=== PATIENT | male | born 1970 | race Caucasian/White ===

== ENCOUNTER 2024-10-12 17:20 | Inpatient (IN) ==
--- NOTE | 2024-10-12 17:28 | ED Triage Note ---
Date of Service October 12, 2024 Provider in Triage Author: Jonas Reyes History of Present Illness This patient was briefly evaluated while in triage. An abbreviated physical exam was performed. This patient is a 54-year-old Male who presents to the ED for evaluation here 2 days ago with left flank pain, diagnosed with a kidney stone on antibiotics but nothing given for pain continued left flank pain denies fevers Physical Exam GENERAL: NAD CARDIOVASCULAR: RRR RESPIRATORY: CTA ABDOMEN: BS x 4. Left flank TTP. Initial orders for labs and / or imaging were placed and patient was placed in t he waiting area until a bed is available. Please see further documentation for the full ED course.
[2024-10-12] MEDS: KETOROLAC 30 MG/ML VIAL IV STA (17:37)
[2024-10-12 18:02] LABS: Basophils # (auto) 0.01 K/uL (0.00-0.20); Basophils % (auto) 0.1 %; Eosinophils # (auto) 0.03 K/uL (0.00-0.50); Eosinophils % (auto) 0.3 %; Hematocrit (blood only) 45.1 % (42.0-52.0); Hemoglobin 15.2 g/dl (14.0-18.0); Immature Granulocytes # (auto) 0.03 K/uL (0.01-0.20); Immature Granulocytes % (auto) 0.3 %; Lymphocytes % (auto) 20.9 %; Mean Corpuscular Hemoglobin 29.5 pg (25.0-34.0); Mean Corpuscular Hgb Conc 33.7 g/dL (32.0-36.0); Mean Corpuscular Volume 87.6 fL (80.0-100.0); Mean Platelet Volume 8.8 fL (9.4-12.4); Neutrophils # (auto) 6.88 K/uL (1.40-6.50); Neutrophils % (auto) 68.4 %; Platelet Count 229 K/uL (130-400); RDW Coefficient of Variation 13.1 % (11.5-14.5); RDW Standard Deviation 41.7 fL (36.4-46.3); Red Blood Count 5.15 M/uL (4.70-6.10); White Blood Count 10.05 K/ul (4.8-10.8)
[2024-10-12 18:03] LABS: Albumin Globulin Ratio 1.6 (0.9-2); Albumin Level 4.7 gm/dl (3.4-5.0); BUN Creatinine Ratio 14.8 (10-20); Bilirubin,Total 0.7 mg/dl (0.2-1.0); Calcium 9.6 mg/dl (8.6-10.3); Creatinine Clr Calc Pharmacy 57.3 ml/min; Globulin 2.9 gm/dl (2.5-4.0); Potassium 4.3 mmol/L (3.5-5.1); Total Protein 7.6 gm/dl (6.0-8.3)
[2024-10-12] MEDS: SODIUM CHLORIDE 0.9% 1,000 ML IV SCH ×2 (18:20→23:19)
--- NOTE | 2024-10-12 18:22 | XRay Report ---
EXAM: Radiograph of the Abdomen 1 View INDICATION: Left ureteral stone TECHNIQUE: Frontal supine view of the abdomen/pelvis. COMPARISON: CT 10/11/2024 FINDINGS: Limitations: None. Gastrointestinal tract: Air scattered throughout non-dilated intestinal loops. Organs: There appears to be a 2 to 3 mm stone at the left UVJ likely unchanged. No stone seen over either renal shadow allowing for overlying stool and gas. Bones/joints: No fracture, erosion or dislocation. Soft tissues: There is edema in the left lateral pelvis. IMPRESSION: There appears to be a 2 to 3 mm stone at the left UVJ likely unchanged. ACT 112: Negative or not required by law. Electronically signed by Jacqueline Ortiz 10-12-2024 6:18 PM
[2024-10-12 18:29] LABS: Appearance Urine Clear (Clear); Bilirubin Urine Negative (Negative); Blood Urine Negative (Negative); Color Urine Yellow; Glucose Urine UA Negative (Negative); Ketones Urine Trace (Negative); Leukocyte Esterase Urine Negative (Negative); Nitrite Urine Negative (Negative); Protein Urine Negative (Negative); Specific Gravity Urine 1.033 (1.000-1.030); Urobilinogen Urine Negative (Negative); pH Urine 5.5 (4.5-7.5)
--- NOTE | 2024-10-12 18:45 | CT Scan Report ---
EXAM: CT Abdomen and Pelvis Without Intravenous Contrast INDICATION: Left flank pain. Left ureteral stone. TECHNIQUE: Axial computed tomography images of the abdomen and pelvis without intravenous contrast. Sagittal and coronal reformatted images were created and reviewed. This CT exam was performed using one or more of the following dose reduction techniques: automated exposure control, adjustment of the mA and/or kV according to patient size, and/or use of iterative reconstruction technique. COMPARISON: 10/11/2024 FINDINGS: Limitations: None. Lung bases: No abnormality noted. Pleural space: No visualized pleural effusion or pneumothorax. Heart: No abnormality noted. Mediastinum: No abnormality noted. ABDOMEN: Liver: Lack of intravenous contrast limits detection of some masses. No abnormality noted. Gallbladder and bile ducts: No calcified stones or surrounding fluid. Pancreas: No pancreatic mass, calcification, inflammation or ductal dilation noted. Spleen: No significant abnormality noted. Adrenals: No significant abnormality noted. Kidneys and ureters: There is improved left perinephric edema and fluid. Stable to trace left hydronephrosis. There is stable moderate edema and low-density fluid tracking along the left ureter into the pelvis toward the left inguinal region. No associated hyperdensity identified to suggest urinoma/leak. There is hyperdensity throughout much of the left ureter which likely reflects a standing column of contrast from yesterday's injection. The stone at the left UVJ remains. moderate left parapelvic and periureteral edema. Stable low-density fluid in the left retroperitoneum. Right kidney appears normal. Stomach and bowel: Colonic diverticulosis without diverticulitis. No intestinal thickening or obstruction. PELVIS: Appendix: Well seen and appears normal. Bladder: Incompletely distended and not optimally assessed. No gas or stone. Reproductive: No abnormalities noted. ABDOMEN and PELVIS: Intraperitoneal space: No free air. No significant fluid collection. Bones/joints: No acute changes. Soft tissues: There are small bilateral fat containing inguinal hernias. Vasculature: No abdominal aortic aneurysm. Lymph nodes: No pathologically enlarged lymph nodes. IMPRESSION: 1. Stable left UVJ stone and trace hydronephrosis. 2. Moderate amounts of edema and fluid along the left ureter tracking through the left retroperitoneum does not enhance consistent with either urine from a rupture that is since sealed. No extravasated contrast to suggest urinoma. ACT 112: Negative or not required by law. Electronically signed by Jacqueline Ortiz 10-12-2024 6:45 PM
--- NOTE | 2024-10-12 21:43 | History & Physical Report ---
Date of Service October 12, 2024 Assessment & Plan (1) MARLEY (acute kidney injury): (2) Paraureteric urinoma: (3) Renal colic on left side: Plan Everett Hurtado is a 54 year-old male with medical history significant for GERD, HTN, HLD who presented to the ED for left sided back pain. Was seen the day prior in ED for known left sided renal stone, was discharged at the time with plan for outpatient urology follow up. Left UVJ Stone | Possible Paraureteric Urinoma -Worsening of pain since ED evaluation day prior and discharged on Cefdinir -No leukocytosis, afebrile. UA +ketones. Will repeat CBC in a.m. -Repeat CT A/P obtained: "stable left UVJ stone and trace hydronephrosis. Moderate amounts of edema and fluid along the left ureter tracking through he left retroperitoneum does not enhance consistent with either urine from a rupture that is since sealed. No extravasated contrast to suggest urinoma." This differs from the CT A/P the day prior which did report a urinoma -CT from 10/11 reported "moderate fat stranding with adjacent fluid collection is noted along the entire course of left ureter-suggest changes of obstructive uropathy with urinoma formation. -Will initiate Ceftriaxone q24h, continue IVF -Urology consulted, appreciate recommendations -Analgesia with Tylenol, Morphine PRN HTN- continue lisinopril Anxiety/depression- continue sertraline Admit to: med/surg VTE Prophylaxis: defer while awaiting urology evaluation Diet: NPO Code Status: Full Code History of Present Illness Primary Care Provider: EKTA Somers Everett Hurtado is a 54 year-old male with medical history significant for GERD, HTN, HLD who presented to the ED for left sided back pain. Patient was previously evaluated in the ED at [facility] on 10/11 for same symptoms, was diagnosed with renal colic on left side and CT imaging showed paraureteric urinoma- patient was discharged on Cefdinir and recommended to follow up with urology as an outpatient. Patient returned to ED today after no improvement in symptoms after starting the antibiotic. Patient endorses left sided back/flank pain and has been unable to get comfortable, endorses feeling sweaty due to the pain. States he had a kidney stone 20+ years ago but he passed it on his own and had no other issues. Currently patient denies chest pain/SOB/fever/body aches. Denies any hematuria or dysuria. States he has not had much to eat or drink today due to the pain he is in. Notes some improvement with IV Toradol given in ED. ED Course: -KUB -CT A/P -CBC, CMP, UA Allergies Allergy/AdvReac Type Severity Reaction Status Date / Time citalopram AdvReac Mild headache Verified 10/12/24 20:53 hallucination levofloxacin AdvReac Mild tendinitis Verified 10/12/24 20:53 Home Medications Medication Instructions Recorded Confirmed Type latanoprost 0.005 % eye drops 1 drp ophthalmic (eye) .COMPLEX 11/11/23 10/12/24 History sertraline 25 mg tablet 25 mg PO HS #90 tabs 02/03/24 10/12/24 Rx cefdinir 300 mg capsule 300 mg PO BID 5 days #10 caps 10/11/24 10/12/24 Rx lisinopril 20 mg tablet 20 mg PO DAILY 10/12/24 10/12/24 History Past Med/Surg History Problem List (Updated 10/13/24 @ 19:05 by Jimena Peters MD) Paraureteric urinoma (Acute) Left ureteral stone (Acute) MARLEY (acute kidney injury) (Acute) Paraureteric urinoma (Acute) Renal colic on left side (Acute) White coat syndrome with diagnosis of hypertension Encounter for screening for malignant neoplasm of rectum Encounter for screening for malignant neoplasm of colon Lightheadedness Nausea Anxiety and depression Screening PSA (prostate specific antigen) Vitamin D deficiency GERD (gastroesophageal reflux disease) Acute epididymitis Myalgia due to statin Neck strain Well adult Hypertension (Chronic) Hyperlipidemia (Chronic) Medical History Prostatitis (03/12/13) Lyme disease Surgical History History of tonsillectomy (03/12/13) Family History Mother Hypertension Denies family history of Ovarian cancer Prostate cancer Diabetes Myocardial infarction Breast cancer Colorectal cancer Social History Smoking Status: Never smoker Second Hand Exposure: No; Do You Dip or Chew Tobacco: No; Hx Alcohol Use: No Hx Substance Use: No Preferred Language: Kuwaiti Communication Ability: Effective Packer Required: No Beliefs That Will Affect Care: None marital status: Current Living Situation: Spouse Current Living Situation Comment: lives with girlfriend current occupational status: employed current occupation: self-employed How many Children do You have: 0 Feels Safe at Home: Yes Childhood Exposure to Second-Hand Smoke: Yes Diet: regular caffeine: Yes Dental Care, Regularly: Yes Physical Activity Frequency: 1-2 Times per Week Seatbelt Use: never Sunscreen Use: No Review of Systems Review of Systems: As per above Physical Exam Constitutional: WD/WN, vitals as above Eyes: + anicteric sclerae; no conjunctival abn ormality ENMT: Ears: no external ear abnormality Nose: no external nose abnormality moist mucous membranes Respiratory: normal respiratory effort, lungs clear to auscultation Cardiovascular: RRR, no murmur, no edema Gastrointestinal (Abdomen): Inspection/Auscultation: abdomen normal to inspection; abdomen not distended Percussion/Palpation: abdomen soft; abdomen nontender and no guarding Musculoskeletal: Moves all limbs independently. Skin: no rashes, warm and dry Psychiatric: A+Ox3, euthymic affect Results & Data Results & Data Vital Signs (Past 12 Hours) Vital Signs Temp Pulse Pulse Resp BP BP Pulse Ox 10/12/24 19:17 76 18 174/89 H 96 10/12/24 19:16 77 10/12/24 17:26 37.4 C 75 20 164/101 H 96 O2 Del Method 10/12/24 19:17 Room Air 10/12/24 19:16 10/12/24 17:26 Room Air Diagnostic Findings KUB X-Ray 10/12/24 17:28 EXAM: Radiograph of the Abdomen 1 View INDICATION: Left ureteral stone TECHNIQUE: Frontal supine view of the abdomen/pelvis. COMPARISON: CT 10/11/2024 FINDINGS: Limitations: None. Gastrointestinal tract: Air scattered throughout non-dilated intestinal loops. Organs: There appears to be a 2 to 3 mm stone at the left UVJ likely unchanged. No stone seen over either renal shadow allowing for overlying stool and gas. Bones/joints: No fracture, erosion or dislocation. Soft tissues: There is edema in the left lateral pelvis. IMPRESSION: There appears to be a 2 to 3 mm stone at the left UVJ likely unchanged. ACT 112: Negative or not required by law. Electronically signed by Jacqueline Ortiz 10-12-2024 6:18 PM Abdomen/Pelvis CT 10/12/24 18:18 EXAM: CT Abdomen and Pelvis Without Intravenous Contrast INDICATION: Left flank pain. Left ureteral stone. TECHNIQUE: Axial computed tomography images of the abdomen and pelvis without intravenous contrast. Sagittal and coronal reformatted images were created and reviewed. This CT exam was performed using one or more of the following dose reduction techniques: automated exposure control, adjustment of the mA and/or kV according to patient size, and/or use of iterative reconstruction technique. COMPARISON: 10/11/2024 FINDINGS: Limitations: None. Lung bases: No abnormality noted. Pleural space: No visualized pleural effusion or pneumothorax. Heart: No abnormality noted. Mediastinum: No abnormality noted. ABDOMEN: Liver: Lack of intravenous contrast limits detection of some masses. No abnormality noted. Gallbladder and bile ducts: No calcified stones or surrounding fluid. Pancreas: No pancreatic mass, calcification, inflammation or ductal dilation noted. Spleen: No significant abnormality noted. Adrenals: No significant abnormality noted. Kidneys and ureters: There is improved left perinephric edema and fluid. Stable to trace left hydronephrosis. There is stable moderate edema and low-density fluid tracking along the left ureter into the pelvis toward the left inguinal region. No associated hyperdensity identified to suggest urinoma/leak. There is hyperdensity throughout much of the left ureter which likely reflects a standing column of contrast from yesterday's injection. The stone at the left UVJ remains. moderate left parapelvic and periureteral edema. Stable low-density fluid in the left retroperitoneum. Right kidney appears normal. Stomach and bowel: Colonic diverticulosis without diverticulitis. No intestinal thickening or obstruction. PELVIS: Appendix: Well seen and appears normal. Bladder: Incompletely distended and not optimally assessed. No gas or stone. Reproductive: No abnormalities noted. ABDOMEN and PELVIS: Intraperitoneal space: No free air. No significant fluid collection. Bones/joints: No acute changes. Soft tissues: There are small bilateral fat containing inguinal hernias. Vasculature: No abdominal aortic aneurysm. Lymph nodes: No pathologically enlarged lymph nodes. IMPRESSION: 1. Stable left UVJ stone and trace hydronephrosis. 2. Moderate amounts of edema and fluid along the left ureter tracking through the left retroperitoneum does not enhance consistent with either urine from a rupture that is since sealed. No extravasated contrast to suggest urinoma. ACT 112: Negative or not required by law. Electronically signed by Jacqueline Ortiz 10-12-2024 6:45 PM Supervising Physician Co-Signing Physician Notes Attending addendum: I have physically seen this patient, have supervised the medical residents activities, and agree with the H&P unless as otherwise noted. Assessment and Plan: The patient is a 54-year-old male with past medical history including GERD, hypertension, hyperlipidemia, who presented to the emergency department due to left-sided back pain, with known left-sided renal stone. #Left UVJ stone stable- With left ureteral tracking, thought not to be ruptured and question of urinoma noted on previous day CT scan but not on current scan Trace hydronephrosis noted today CT from 10/11 reports moderate fat stranding with adjacent fluid collection noted along the entire course of left ureter suggesting changes of obstructive uropathy with urinoma formation Follow urine culture and sensitivity Empiric ceftriaxone 2 g IV daily Acetaminophen 1 g IV every 8 hours as needed for mild pain or fever Morphine sulfate 2 mg IV every 3 hours as needed for moderate pain Morphine sulfate 4 mg IV every 3 hours as needed for severe pain Consult urology #Acute kidney injury- Creatinine 1.83, with baseline 0.98 Hold lisinopril Treat stone and infection as above IV fluids as noted Repeat laboratories in a.m. #Anxiety/depression- Continue sertraline Resident Activity Tracking Resident Involvement: Resident Care Provided Care Provided: Adult [facility]
[2024-10-12] MEDS: cefTRIAXone SODIUM 2,000 MG/50 ML BAG IV STA (23:01)
[2024-10-12] MEDS ORDERED: MELATONIN 3 MG TAB PO PRN (23:50)
[2024-10-12] MEDS ORDERED: ONDANSETRON INJ 2 MG/ML 2 ML VIAL IV PRN (23:50)
[2024-10-12] MEDS ORDERED: POLYETHYLENE (MIRALAX) 17 GM PACK PO PRN (23:50)
[2024-10-12] MEDS ORDERED: MoRPHine SULFATE 2 MG/ML CARP IV PRN (23:50)
[2024-10-13] MEDS ORDERED: MoRPHine SULFATE 2 MG/ML CARP IV PRN (00:29)
[2024-10-13] MEDS: LATANOPROST 0.005% OP SOLN 2.5 ML BTL OP SCH (00:59)
[2024-10-13 04:00] LABS: Basophils # (auto) 0.01 K/uL (0.00-0.20); Basophils % (auto) 0.1 %; Eosinophils # (auto) 0.02 K/uL (0.00-0.50); Eosinophils % (auto) 0.2 %; Hematocrit (blood only) 39.2 % (42.0-52.0); Hemoglobin 13.2 g/dl (14.0-18.0); Immature Granulocytes # (auto) 0.01 K/uL (0.01-0.20); Immature Granulocytes % (auto) 0.1 %; Lymphocytes # (auto) 2.02 K/uL (1.20-3.40); Lymphocytes % (auto) 24.5 %; Mean Corpuscular Hemoglobin 29.5 pg (25.0-34.0); Mean Corpuscular Hgb Conc 33.7 g/dL (32.0-36.0); Mean Corpuscular Volume 87.5 fL (80.0-100.0); Mean Platelet Volume 8.8 fL (9.4-12.4); Monocytes # (auto) 0.88 K/uL (0.11-0.59); Monocytes % (auto) 10.7 %; Neutrophils # (auto) 5.29 K/uL (1.40-6.50); Neutrophils % (auto) 64.4 %; Platelet Count 198 K/uL (130-400); RDW Coefficient of Variation 12.8 % (11.5-14.5); RDW Standard Deviation 41.2 fL (36.4-46.3); Red Blood Count 4.48 M/uL (4.70-6.10); White Blood Count 8.23 K/ul (4.8-10.8)
[2024-10-13 04:21] LABS: Albumin Globulin Ratio 1.6 (0.9-2); Albumin Level 3.9 gm/dl (3.4-5.0); BUN Creatinine Ratio 14.8 (10-20); Bilirubin,Total 0.6 mg/dl (0.2-1.0); Calcium 8.5 mg/dl (8.6-10.3); Creatinine Clr Calc Pharmacy 62.1 ml/min; Globulin 2.5 gm/dl (2.5-4.0); Potassium 4.1 mmol/L (3.5-5.1); Total Protein 6.4 gm/dl (6.0-8.3)
[2024-10-13] MEDS: ACETAMINOPHEN 500 MG TAB PO PRN (06:32)
--- NOTE | 2024-10-13 08:56 | Anesthesiology Consultation ---
Date of Service October 13, 2024 Assessment & Plan Chart Review Chart Review: Acceptable Risk for Surgery and Patient NOT seen in Pre Admission Testing Consults Requested none ASA [id number] Proposed Anesthesia Anesthesia Type: General History Surgery Operation Date: 10/13/24 09:00 Proposed Procedures p Ureteral Stent Insertion/Removal - Faustino Islas MD Height/Weight Height: 5 ft 11 in Weight: 101.6 kg Allergies Allergy/AdvReac Type Severity Reaction Status Date / Time citalopram AdvReac Mild headache Verified 10/12/24 20:53 hallucination levofloxacin AdvReac Mild tendinitis Verified 10/12/24 20:53 Medications Home Medications Medication Instructions Recorded Confirmed Last Taken latanoprost 0.005 % eye drops 1 drp ophthalmic (eye) .COMPLEX 11/11/23 10/12/24 Unknown sertraline 25 mg tablet 25 mg PO HS #90 tabs 02/03/24 10/12/24 Unknown cefdinir 300 mg capsule 300 mg PO BID 5 days #10 caps 10/11/24 10/12/24 Unknown lisinopril 20 mg tablet 20 mg PO DAILY 10/12/24 10/12/24 Unknown Active Medications Generic Name Dose Route Start Last Admin Trade Name Freq PRN Reason Stop Dose Admin Acetaminophen 1,000 mg 10/12/24 23:50 10/13/24 06:32 Acetaminophen 500 Mg Tab PO 11/11/24 23:49 1,000 mg Q8H PRN Administration Pain first line Sodium Chloride 1,000 mls @ 125 mls/hr 10/12/24 22:45 10/13/24 07:22 Nss IV 10/13/24 14:44 125 mls/hr .Q8H JOSE Administration Latanoprost 1 drops 10/12/24 23:50 10/13/24 00:59 Latanoprost 0.005% Op Soln 2.5 Ml Btl OP 11/11/24 23:49 Not Given HS JOSE Past Medical History Medical History Prostatitis (03/12/13) Lyme disease HTN HLD MARLEY Hydronephrosis obese Exercise / Class Metabolic Activity II 4-5 Yardwork/Stairs/Walk up hill Past Family History Family History Mother Hypertension Denies family history of Ovarian cancer Prostate cancer Diabetes Myocardial infarction Breast cancer Colorectal cancer Past Surgical History Surgical History History of tonsillectomy (03/12/13) Past Anesthesia History No Hx of Anesthesia Complications and No Family Hx of Anesthesia Complications History of PONV No Hx of PONV and No Hx of Motion Sickness Social History Smoking Status: Never smoker Do You Dip or Chew Tobacco: No Hx Alcohol Use: No Hx Substance Use: No Physical Exam Vital Signs Last Vital Signs Temp 37.4 C 10/12/24 17:26 Pulse 83 10/13/24 07:20 Resp 20 10/13/24 07:20 BP 150/69 H 10/13/24 07:20 Pulse Ox 95 10/13/24 07:20 O2 Del Method Room Air 10/13/24 07:20 Testing Laboratory Results 10/13/24 03:52 10/13/24 03:52 Urine Color Yellow 10/12/24 Unknown Urine Appearance Clear (Clear) 10/12/24 Unknown Urine pH 5.5 (4.5-7.5) 10/12/24 Unknown Ur Specific Anselmo 1.033 (1.000-1.030) H 10/12/24 Unknown Urine Protein Negative (Negative) 10/12/24 Unknown Urine Glucose (UA) Negative (Negative) 10/12/24 Unknown Urine Ketones Trace (Negative) H 10/12/24 Unknown Urine Nitrite Negative (Negative) 10/12/24 Unknown Ur Leukocyte Esterase Negative (Negative) 10/12/24 Unknown Electrocardiogram Date: 01/02/22 Findings: + NSR @ (SR @ 69 w/pac's and PVC's) Echocardiogram Date: 01/07/22 EF: 60% LV Function: normal RWMA: + none Other Findings: + LVH (mild) and + diastolic dysfunction (Grade 1) Valvular Disease: + MR (mild) Stress Test Date: 01/07/22 Type: exercise Findings: + WNL Resting EF: 60% Resting LV Function: normal Resting RWMA: + none Valvular Disease: no significant valvular disease and MR (mild)
[2024-10-13] MEDS: lisinopril 20 MG TAB PO SCH (08:59)
--- NOTE | 2024-10-13 09:06 | Urology Consultation ---
Date of Consultation October 13, 2024 Assessment & Plan (1) MARLEY (acute kidney injury): (2) Paraureteric urinoma: (3) Renal colic on left side: (4) Left ureteral stone: Plan We reviewed the stone at the distal left ureter. Since he has bounced back to the emergency department while trialing medical expulsive therapy, we discussed the role for intervention. I offered cystoscopy, left retrograde pyelogram and left ureteral stent placement, possible stone removal depending on the location of the stone. We discussed risks and benefits of surgery including bleeding, infection, injury to urinary tract, need for additional procedures. He expressed understanding and would like to proceed with surgical intervention. Acute kidney injury is likely multifactorial, potentially element of dehydration, obstruction of the left kidney. If there was forniceal rupture, he may be having some elevated creatinine as his body reabsorbs any urine that was extravasated around the ureter. This fluid should continue to resolve spontaneously without need for drainage. Plan: We will proceed with cystoscopy, left retrograde pyelogram, left ureteroscopy and stone removal, left ureteral stent placement. History of Present Illness Reason for Consultation: Ureterolithiasis, renal colic, Possible urinoma? Attending Physician: Jessica Workman MD History of Present Illness This is a 54-year-old male with remote history of nephrolithiasis. He presented to the emergency department on 10/11/2024 with left-sided flank pain. CT scan at that time identified a 3 mm UVJ stone with hydronephrosis. There was some perinephric and periureteral edema, possibly some urine extravasation. Low suspicion for infection at that time and pain was able to be controlled. He was discharged home, but subsequently returned to the ED on 10/[address] scan was performed again which demonstrated no extravasation of contrast, however there was still contrast from his prior scan feeling in the left ureter, block behind the left UVJ stone. Workup in the emergency department demonstrated no leukocytosis (WBC 8.23). Creatinine was slightly elevated (1.69). Urinalysis did not demonstrate leukocyte esterase, nitrites and was overall reassuring. At the bedside he is feeling okay, but has not clearly passed the stone. he still has some flank pain. He reports a history of stones in the past that he was able to pass spontaneously. Allergies Allergy/AdvReac Type Severity Reaction Status Date / Time citalopram AdvReac Mild headache Verified 10/12/24 20:53 hallucination levofloxacin AdvReac Mild tendinitis Verified 10/12/24 20:53 Home Medications Medication Instructions Recorded Confirmed Type latanoprost 0.005 % eye drops 1 drp ophthalmic (eye) .COMPLEX 11/11/23 10/12/24 History sertraline 25 mg tablet 25 mg PO HS #90 tabs 02/03/24 10/12/24 Rx cefdinir 300 mg capsule 300 mg PO BID 5 days #10 caps 10/11/24 10/12/24 Rx lisinopril 20 mg tablet 20 mg PO DAILY 10/12/24 10/12/24 History Patient History Medical History Prostatitis (03/12/13) Lyme disease Surgical History History of tonsillectomy (03/12/13) Family History Mother Hypertension Denies family history of Ovarian cancer Prostate cancer Diabetes Myocardial infarction Breast cancer Colorectal cancer Social History Smoking Status: Never smoker Second Hand Exposure: No; Do You Dip or Chew Tobacco: No; Hx Alcohol Use: No Hx Substance Use: No Preferred Language: Uzbek Communication Ability: Effective Screwmaker Automatic Required: No Beliefs That Will Affect Care: None marital status: Current Living Situation: Spouse Current Living Situation Comment: lives with girlfriend current occupational status: employed current occupation: self-employed How many Children do You have: 0 Other Information That Helps Us Care for You: No Feels Safe at Home: Yes Childhood Exposure to Second-Hand Smoke: Yes Diet: regular caffeine: Yes Dental Care, Regularly: Yes Physical Activity Frequency: 1-2 Times per Week Seatbelt Use: never Sunscreen Use: No Review of Systems Review of Systems: 12 point review of systems negative exce pt for otherwise indicated. Physical Exam Constitutional: well developed and well nourished; no acute distress Eyes: + anicteric sclerae; pupils not irregula r Respiratory: normal respiratory effort; no respiratory distress, does not use accessory muscles and no cough Cardiovascular: well perfused Gastrointestinal (Abdomen): Inspection/Auscultation: abdomen normal to inspection; abdomen not distended Musculoskeletal: Extremities: extremities normal to inspection Skin: normal turgor; no rashes and no lesions Neurologic: moves all extremities and awake Psychiatric: Orientation: alert and oriented x 3 Results & Data Vital Signs (Past 12 Hours) Vital Signs Pulse Pulse Resp BP BP Pulse Ox O2 Del Method 10/13/24 07:20 83 20 150/69 H 95 Room Air 10/13/24 07:13 73 10/13/24 03:50 77 19 143/100 H 97 Room Air 10/13/24 03:45 77 12 143/100 H 98 Room Air 10/13/24 01:50 76 10/13/24 01:07 75 18 158/90 H 98 Room Air 10/13/24 00:16 76 18 141/83 H 96 Room Air 10/12/24 23:00 76 18 170/93 H 96 Room Air PG Care Time/CCT Total # of Minutes Spent Total Time Spent with Patient: Total time spent is greater than 50% in coordination of care (as documented) at patient's floor/unit and/or counseling patient: Coding Level of Care Code 02142 OP VST NEW MOD 45 MIN Diagnoses MARLEY (acute kidney injury) N17.9 Paraureteric urinoma N28.89 Renal colic on left side N23 Left ureteral stone N20.1
--- NOTE | 2024-10-13 10:03 | Hospitalist Progress Note ---
Date of Service October 13, 2024 Assessment & Plan (1) Left ureteral stone: (2) Hypertension: Plan Everett Hurtado is a 54 year-old male with medical history significant for GERD, HTN, HLD who presented to the ED for left sided back pain. Was seen the day prior in ED for known left sided renal stone, was discharged at the time with plan for outpatient urology follow up. #Left UVJ Stone | Possible Paraureteric Urinoma - Worsening of pain since ED evaluation day prior and discharged on Cefdinir - No leukocytosis, afebrile. UA +ketones. Will repeat CBC in a.m. - Repeat CT A/P obtained: "stable left UVJ stone and trace hydronephrosis. Moderate amounts of edema and fluid along the left ureter tracking through he left retroperitoneum does not enhance consistent with either urine from a rupture that is since sealed. No extravasated contrast to suggest urinoma." This differs from the CT A/P the day prior which did report a urinoma - CT from 10/11 reported "moderate fat stranding with adjacent fluid collection is noted along the entire course of left ureter-suggest changes of obstructive uropathy with urinoma formation. - Will initiate Ceftriaxone q24h, continue IVF - Urology on board, plan for cystoscopy, left retrograde pyelogram, left uret eroscopy and stone removal, left ureteral stent placement - Analgesia with Tylenol, Morphine PRN #MARLEY improving - Cr trending down, cont to monitor HTN- continue lisinopril (monitor Cr) Anxiety/depression- continue sertraline #VTE Prophylaxis: defer while awaiting urology evaluation, mobilization protocol for now Diet: NPO Code Status: Full Code Discharge pending Urology clearance Admission and Anticipated Discharge Date Admission Date: October 12, 2024 Subjective No acute events overnight Currently states that the pain has significantly improved Review of Systems Review of Systems: Comprehensive ROS neg. Physical Exam Physical Exam: Gen: NAD, lying in bed comfortable HEENT: NC/AT, MMM Lungs: CTAB CVS: s1s2nl, RRR Abd: nl bs, nontender, soft : no flank tenderness b/l, no mei Ext: no edema Results & Data Results & Data Vital Signs (Past 12 Hours) Vital Signs Pulse Pulse Resp BP BP Pulse Ox O2 Del Method 10/13/24 07:20 83 20 150/69 H 95 Room Air 10/13/24 07:13 73 10/13/24 03:50 77 19 143/100 H 97 Room Air 10/13/24 03:45 77 12 143/100 H 98 Room Air 10/13/24 01:50 76 10/13/24 01:07 75 18 158/90 H 98 Room Air 10/13/24 00:16 76 18 141/83 H 96 Room Air 10/12/24 23:00 76 18 170/93 H 96 Room Air PG Care Time/CCT Total # of Minutes Spent Total Time Spent with Patient: Total time spent is greater than 50% in coordination of care (as documented) at patient's floor/unit and/or counseling patient: Coding Level of Care Code 25699 SUB INP/OBS CARE 350MIN Diagnoses Left ureteral stone N20.1 Primary hypertension I10 Hypertension type: primary hypertension (2) Hypertension Hypertension type: primary hypertension Qualified Code(s): I10 - Essential (primary) hypertension
[2024-10-13] MEDS ORDERED: fentaNYL citrate PF 100 MCG/2 ML VIAL IV PRN (12:05)
[2024-10-13] MEDS ORDERED: LABETALOL HCL IV 5 MG/ML 20ML IV PRN (12:05)
[2024-10-13] MEDS ORDERED: FLUMAZENIL 0.1 MG/1 ML 10 ML VIAL IV PRN (12:05)
[2024-10-13] MEDS ORDERED: NALOXONE HCL 0.4 MG/1 ML VIAL/CARP IV PRN (12:05)
[2024-10-13] MEDS ORDERED: ATROPINE SULFATE 0.1 MG/ML 10ML SYR IV PRN (12:05)
[2024-10-13] MEDS ORDERED: ONDANSETRON INJ 2 MG/ML 2 ML VIAL IV PRN (12:05)
[2024-10-13] MEDS ORDERED: PROMETHAZINE HCL 6.25 MG in SODIUM CHLORIDE 0.9% 50 ML IV PRN (12:05)
[2024-10-13] MEDS ORDERED: ePHEDrine sulfate 50 MG/ML AMP IV PRN (12:05)
[2024-10-13] MEDS ORDERED: HYDROmorphone INJ 1 MG/ML SYRINGE IV PRN (12:05)
[2024-10-13] MEDS ORDERED: ONDANSETRON INJ 2 MG/ML 2 ML VIAL ONE (12:09)
[2024-10-13] MEDS ORDERED: PROPOFOL IV EMULSION 10 MG/ML 20 ML VIAL IV ONE (12:09)
[2024-10-13] MEDS ORDERED: DEXAMETHASONE SOD INJ 4 MG/ML VIAL ONE (12:09)
[2024-10-13] MEDS ORDERED: fentaNYL citrate PF 100 MCG/2 ML VIAL ONE ×2 (12:10→12:21)
[2024-10-13] MEDS ORDERED: MIDAZOLAM HCL 1 MG/ML 2ML VIAL ONE (12:10)
[2024-10-13] MEDS ORDERED: ceFAZolin 330 MG/ML 1 GM VIAL ONE (12:29)
[2024-10-13] MEDS: ceFAZolin 2000MG 2,000 MG/15 ML SYR IV ONE (12:29)
[2024-10-13] MEDS: DIATRIZOATE MEGLUMINE 30% 100ML VIAL INSTIL ONE (12:43)
--- NOTE | 2024-10-13 12:51 | Operative Report ---
PG Post Operative Report Pre & Post Diagnosis Operation Date: 10/13/24 09:00 Pre-Op Diagnosis: Acute kidney injury, paraureteric urinoma, renal colic on left side, left ureteral stone Post-Op Diagnosis: Acute kidney injury, paraureteric urinoma, renal colic on left side, left ureteral stone I identified the patient and participated in the time-out.: Yes Procedure Operation Date: 10/13/24 09:00 Actual Procedures p Cystoscopy, left ureteronephroscopy, Left ureteral stent Placement - Faustino Islas MD Surgeon Faustino Islas MD Account Support Analyst None Estimated Blood Loss 0 Findings See Below No stone appreciated in the ureter, likely passed spontaneously. Ureteral stent was left in place due to perinephric edema versus urinoma Specimens None Drains 6 Syrian x 26 cm double-J ureteral stent in the left ureter Anesthesia Type General Complications none Disposition Accompanied Patient To Recovery: Yes Disposition: Recovery Room Indications This is a 54-year-old male recently seen in the emergency department with a left ureteral stone and associated left periureteral edema. No urine extravasation was seen on recent CT scan. Description of Procedure The patient was identified in the holding area and informed consent was confirmed. He was marked on the left side, then was taken to the operating room where general anesthesia was initiated. He was placed in the dorsal lithotomy position with all pressure points appropriately padded. He was prepped and draped in the usual sterile fashion and a preoperative timeout was performed. A well-lubricated cystoscope was inserted per urethra and panendoscopy was performed. The pendulous urethra was normal with no strictures or mucosal abnormalities. The prostate was of normal size. His bladder appeared grossly normal with no tumors or stones appreciated. Ureteral orifices were in orthotopic position bilaterally A 0.038 inch zip wire was advanced into the left ureteral orifice. No suspicious shadows were seen on spot fluoroscopy. Semirigid ureteroscope was then advanced alongside the wire. A second wire was used to prop open the ureteral orifice and the scope was advanced. The entire length of the ureter was surveyed and no stones were identified. It seems most likely that he had passed his distal stone spontaneously. Since he had been having pain and there was periureteral edema, I opted to leave a stent. The cystoscope was reinserted over the wire, then a 6 Syrian x 26 centimeter double-J ureteral stent was advanced. When the wire was removed, the proximal curl was visualized in the kidney with x-ray, and the distal curl visualized in the bladder with the cystoscope. At this point the bladder was drained and all instrumentation was removed. The patient was then awakened from anesthesia and was brought to the PACU in stable condition. I attest to the content of the Intraoperative Record and any orders documented therein. Any exceptions are noted below.
--- NOTE | 2024-10-13 13:09 | Fluoroscopy Report ---
FL KUB CLINICAL HISTORY: LEFT COMPARISON STUDY: CT of the abdomen and pelvis October 12, 2024. FLUOROSCOPY TIME: 8 seconds. Ka,r: 2.47 mGy FLUOROSCOPIC IMAGES: 1 FINDINGS: Fluoroscopy was provided during left ureteral stent insertion. The proximal aspect of the s tent projects over the left collecting system. IMPRESSION: Fluoroscopy provided during left ureteral stent insertion. ACT 112: Negative or not required by law. Electronically signed by: Marc Claros M.D. 10/13/2024 1:06 PM
--- NOTE | 2024-10-13 14:48 | Anesthesiology Progress Note ---
Date of Service October 13, 2024 Anesthesia Post Procedure Vital Signs Vital Signs: Temp Pulse Pulse Pulse Resp BP BP 10/13/24 14:30 36.8 C 66 16 124/69 10/13/24 14:00 36.8 C 72 16 117/66 10/13/24 13:30 36.9 C 79 16 125/69 10/13/24 13:20 36.8 C 76 20 101/48 L 10/13/24 13:10 69 15 97/51 L 10/13/24 13:00 72 20 100/46 L 10/13/24 12:52 36.6 C 74 15 92/52 L 10/13/24 09:51 36.8 C 69 16 132/75 10/13/24 07:20 83 20 150/69 H 10/13/24 07:13 73 10/13/24 03:50 77 19 143/100 H 10/13/24 03:45 77 12 143/100 H 10/13/24 01:50 76 10/13/24 01:07 75 18 158/90 H 10/13/24 00:16 76 18 141/83 H 10/12/24 23:00 76 18 170/93 H 10/12/24 19:17 76 18 174/89 H 10/12/24 19:16 77 10/12/24 17:26 37.4 C 75 20 164/101 H Pulse Ox O2 Del Method O2 Flow Rate 10/13/24 14:30 93 Room Air 10/13/24 14:00 95 Room Air 10/13/24 13:30 93 Room Air 10/13/24 13:20 92 Room Air 10/13/24 13:10 97 Oxymask 6 10/13/24 13:00 96 Oxymask 6 10/13/24 12:52 96 Oxymask 6 10/13/24 09:51 96 Room Air 10/13/24 07:20 95 Room Air 10/13/24 07:13 10/13/24 03:50 97 Room Air 10/13/24 03:45 98 Room Air 10/13/24 01:50 10/13/24 01:07 98 Room Air 10/13/24 00:16 96 Room Air 10/12/24 23:00 96 Room Air 10/12/24 19:17 96 Room Air 10/12/24 19:16 10/12/24 17:26 96 Room Air Pain Intensity Left Flank: Pain Intensity: 1 Transfer of Care Handoff Completed per policy Notes Mental Status: alert / awake / arousable Patient Amnestic to Procedure: Yes Nausea / Vomiting: adequately controlled Pain: adequately controlled Airway Patency, RR, SpO2: stable & adequate BP & HR: stable & adequate Hydration State: stable & adequate Anesthetic Complications: no major complications apparent
--- NOTE | 2024-10-13 18:55 | Emergency Department Note ---
Impression & Plan Left ureteral stone, Paraureteric urinoma ED Provider Note CHIEF COMPLAINT: Left flank pain HISTORY OF PRESENT ILLNESS: This 54-year-old male patient past medical history of kidney stone, hypertension, hyperlipidemia, epididymitis, GERD, presents to the emergency department with complaints of left sided flank pain. The patient states he was diagnosed with a kidney stone 2 days ago and went home with pain medication. He states he had a "tear in the ureter" and was told by Dr. Islas that it would resolve on its own. Patient states the pain today is slightly different and worse in the left flank. It is consistent in the same location. REVIEW OF SYSTEMS: A review of systems was performed with positives and pertinent negatives listed in the history of present illness. 10 systems were reviewed and are otherwise negative. ALLERGIES: see below MEDICATIONS: see below PMH: see below SOCIAL HISTORY: see below DDx: Kidney stone, renal failure, urethral tear, UTI/pyelonephritis, dehydration, retroperitoneal hematoma among others. PHYSICAL EXAM: Vital signs reviewed. General: Well-appearing 54-year-old male, in no significant distress. HEENT: No scleral icterus, PERRLA, neck supple. Atraumatic. Cardiovascular: Regular rate and rhythm, no extra sounds. Pulmonary: Clear to auscultation bilaterally, normal work of breathing. Abdomen: Soft, nontender, nondistended, positive bowel sounds. Positive left CVA tenderness. Musculoskeletal: Atraumatic, no peripheral edema. Neurologic: Patient awake alert and oriented x 3 Skin: Warm, dry, no rash EMERGENCY DEPARTMENT COURSE/MDM: IV access was obtained and laboratory work was drawn. The patient was placed on the alarm security or surveillance monitor and noted to be in a normal sinus rhythm. IV fluids were initiated. The patient did receive IV Toradol and IV hydration. Repeat CT imaging of the abdomen and pelvis was performed and reveals a stable left UVJ stone, trace hydronephrosis. Edema and fluid along the left ureter and left retroperitoneum is consistent with urine. Laboratory work reveals a normal WBC. UA is negative. Patient's creatinine is slightly higher than yesterday at 1.83. I do not feel the patient is acutely infected at this time. I did speak with Dr. Islas of urology who feels that is reasonable for inpatient admission and urologic consultation tomorrow. He did review the CT images. Patient was feeling reasonably comfortable at this time. Patient will be evaluated by the hospitalist service for admission and further management. He was made aware of the findings and plan and agrees. MONITORING: An order for cardiac monitoring was placed and the patient is noted to be in a normal sinus rhythm at 80 beats per minute. RADIOLOGY: KUB per radiology reveals a distal left ureteral stone. CT of the abdomen and pelvis: IMPRESSION: 1. Stable left UVJ stone and trace hydronephrosis. 2. Moderate amounts of edema and fluid along the left ureter tracking through the left retroperitoneum does not enhance consistent with either urine from a rupture that is since sealed. No extravasated contrast to suggest urinoma. DISPOSITION: Admission Past Med/Surg History Problem List (Updated 10/13/24 @ 19:05 by Jimena Peters MD) Paraureteric urinoma (Acute) Left ureteral stone (Acute) MARLEY (acute kidney injury) (Acute) Paraureteric urinoma (Acute) Renal colic on left side (Acute) White coat syndrome with diagnosis of hypertension Encounter for screening for malignant neoplasm of rectum Encounter for screening for malignant neoplasm of colon Lightheadedness Nausea Anxiety and depression Screening PSA (prostate specific antigen) Vitamin D deficiency GERD (gastroesophageal reflux disease) Acute epididymitis Myalgia due to statin Neck strain Well adult Hypertension (Chronic) Hyperlipidemia (Chronic) Medical History Prostatitis (03/12/13) Lyme disease Surgical History History of tonsillectomy (03/12/13) Family History Mother Hypertension Denies family history of Ovarian cancer Prostate cancer Diabetes Myocardial infarction Breast cancer Colorectal cancer Social History Smoking Status: Never smoker Second Hand Exposure: No; Do You Dip or Chew Tobacco: No; Hx Alcohol Use: No Hx Substance Use: No Preferred Language: Upper Sorbian Communication Ability: Effective 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 Beliefs That Will Affect Care: None marital status: Current Living Situation: Spouse Current Living Situation Comment: lives with girlfriend current occupational status: employed current occupation: self-employed How many Children do You have: 0 Feels Safe at Home: Yes Childhood Exposure to Second-Hand Smoke: Yes Diet: regular caffeine: Yes Dental Care, Regularly: Yes Physical Activity Frequency: 1-2 Times per Week Seatbelt Use: never Sunscreen Use: No Allergies Allergies Allergy/AdvReac Type Severity Reaction Status Date / Time citalopram AdvReac Mild headache Verified 10/12/24 20:53 hallucination levofloxacin AdvReac Mild tendinitis Verified 10/12/24 20:53 Home Meds Home Medications Medication Instructions Recorded Confirmed latanoprost 0.005 % eye drops 1 drp ophthalmic (eye) .COMPLEX 11/11/23 10/12/24 lisinopril 20 mg tablet 20 mg PO DAILY 10/12/24 10/12/24 Previous Rx's Medication Instructions Recorded sertraline 25 mg tablet 25 mg PO HS #90 tabs 02/03/24 cefdinir 300 mg capsule 300 mg PO BID 5 days #10 caps 10/11/24 Results & Data (ED) Vital Signs Vital Signs - 24 hr 10/12/24 19:16 10/12/24 19:17 Pulse Rate 77 Pulse Rate [Apical] 76 Pulse Rhythm [Apical] Regular Pulse Strength [Apical] Normal Respiratory Rate 18 Respiratory Effort / Characteristics Non-Labored Respiratory Depth Normal Respiratory Pattern Regular Blood Pressure [Left Arm] 174/89 H Blood Pressure Mean [Left Arm] 117 Blood Pressure Position [Left Arm] Lying Pulse Oximetry 96 Oxygen Delivery Method Room Air Home Medications Current Medication List: was personally reviewed by me Laboratory Data Attestation: I reviewed the patient's lab results. 10/13/24 03:52 10/13/24 03:52 Lab Results 10/12/24 Range/Units 17:30 WBC 10.05 (4.8-10.8) K/ul RBC 5.15 (4.70-6.10) M/uL Hgb 15.2 (14.0-18.0) g/dl Hct 45.1 (42.0-52.0) % MCV 87.6 (80.0-100.0) fL MCH 29.5 (25.0-34.0) pg MCHC 33.7 (32.0-36.0) g/dL RDW Std Deviation 41.7 (36.4-46.3) fL RDW Coeff of Lidia 13.1 (11.5-14.5) % Plt Count 229 (130-400) K/uL MPV 8.8 L (9.4-12.4) fL Immature Gran % (Auto) 0.3 % Neut % (Auto) 68.4 % Lymph % (Auto) 20.9 % [place] % (Auto) 10.0 % Eos % (Auto) 0.3 % Baso % (Auto) 0.1 % Neut # (Auto) 6.88 H (1.40-6.50) K/uL Lymph # (Auto) 2.10 (1.20-3.40) K/uL [place] # (Auto) 1.00 H (0.11-0.59) K/uL Eos # (Auto) 0.03 (0.00-0.50) K/uL Baso # (Auto) 0.01 (0.00-0.20) K/uL Immature Gran # (Auto) 0.03 (0.01-0.20) K/uL Sodium 139 (136-145) mmol/L Potassium 4.3 (3.5-5.1) mmol/L Chloride 106 (98-107) mmol/L Carbon Dioxide 24 (21-32) mmol/L Anion Gap 9 (3-11) BUN 27 H (6-23) mg/dl Creatinine 1.83 H D (0.6-1.4) mg/dl Est Cr Clr Drug Dosing 57.3 ml/min eGFR 43.85 BUN/Creatinine Ratio 14.8 (10-20) Glucose 109 H (70-99(Fasting)) mg/dl Calcium 9.6 (8.6-10.3) mg/dl Total Bilirubin 0.7 (0.2-1.0) mg/dl AST 23 (13-39) U/L ALT 24 (7-52) U/L Alkaline Phosphatase 66 (34-104) U/L Total Protein 7.6 (6.0-8.3) gm/dl Albumin 4.7 (3.4-5.0) gm/dl Globulin 2.9 (2.5-4.0) gm/dl Albumin/Globulin Ratio 1.6 (0.9-2) Administered Medications Acetaminophen (Acetaminophen 500 Mg Tab) 1,000 mg PO Q8H PRN PRN Reason: Pain first line Stop: 11/11/24 23:49 Last Admin: 10/13/24 06:32 Dose: 1,000 mg Documented By: ADELAIDA Latanoprost (Latanoprost 0.005% Op Soln 2.5 Ml Btl) 1 drops OP HS JOSE Stop: 11/11/24 23:49 Last Admin: 10/13/24 00:59 Dose: Not Given Documented By: BRENDAN Lisinopril (Lisinopril 20 Mg Tab) 20 mg PO DAILY JOSE Stop: 11/12/24 08:59 Last Admin: 10/13/24 08:59 Dose: 20 mg Documented By: RENEE Discontinued Medications Diatrizoate Meglumine (Diatrizoate Meglumine 30% 100ml Vial) 1 ml INSTIL ONCE ONE Stop: 10/13/24 12:24 Last Admin: 10/13/24 12:43 Dose: Not Given Documented By: MANDI Sodium Chloride (Nss) 1,000 mls @ 999 mls/hr IV .Q1H1M JOSE Stop: 10/12/24 18:29 Last Infusion: 10/12/24 19:45 Dose: Infused Documented By: Admin: 10/12/24 18:20 Dose: 999 mls/hr Documented By: AMA Sodium Chloride (Nss) 1,000 mls @ 125 mls/hr IV .Q8H JOSE Stop: 10/13/24 14:44 Last Infusion: 10/13/24 14:52 Dose: Infused Documented By: Admin: 10/13/24 07:22 Dose: 125 mls/hr Documented By: Infusion: 10/13/24 07:22 Dose: Infused Documented By: Admin: 10/12/24 23:19 Dose: 125 mls/hr Documented By: SHANE Ceftriaxone Sodium (Rocephin) 2,000 mg in 50 mls @ 100 mls/hr IV NOW STA Stop: 10/12/24 23:16 Last Infusion: 10/12/24 23:44 Dose: Infused Documented By: Admin: 10/12/24 23:01 Dose: 100 mls/hr Documented By: SHANE Cefazolin Sodium (Ancef 2000mg) 2,000 mg in 15 mls @ 3.75 mls/min IV ONCE ONE; Protocol Stop: 10/13/24 12:04 Last Admin: 10/13/24 12:29 Dose: 3.75 mls/min Documented By: JODI Ketorolac Tromethamine (Ketorolac 30 Mg/Ml Vial) 30 mg IV NOW STA Stop: 10/12/24 17:29 Last Admin: 10/12/24 17:37 Dose: 30 mg Documented By: JASBIR Imaging Data Radiologist's Impression: KUB X-Ray 10/12/24 17:28 EXAM: Radiograph of the Abdomen 1 View INDICATION: Left ureteral stone TECHNIQUE: Frontal supine view of the abdomen/pelvis. COMPARISON: CT 10/11/2024 FINDINGS: Limitations: None. Gastrointestinal tract: Air scattered throughout non-dilated intestinal loops. Organs: There appears to be a 2 to 3 mm stone at the left UVJ likely unchanged. No stone seen over either renal shadow allowing for overlying stool and gas. Bones/joints: No fracture, erosion or dislocation. Soft tissues: There is edema in the left lateral pelvis. IMPRESSION: There appears to be a 2 to 3 mm stone at the left UVJ likely unchanged. ACT 112: Negative or not required by law. Electronically signed by Jacqueline Ortiz 10-12-2024 6:18 PM Abdomen/Pelvis CT 10/12/24 18:18 EXAM: CT Abdomen and Pelvis Without Intravenous Contrast INDICATION: Left flank pain. Left ureteral stone. TECHNIQUE: Axial computed tomography images of the abdomen and pelvis without intravenous contrast. Sagittal and coronal reformatted images were created and reviewed. This CT exam was performed using one or more of the following dose reduction techniques: automated exposure control, adjustment of the mA and/or kV according to patient size, and/or use of iterative reconstruction technique. COMPARISON: 10/11/2024 FINDINGS: Limitations: None. Lung bases: No abnormality noted. Pleural space: No visualized pleural effusion or pneumothorax. Heart: No abnormality noted. Mediastinum: No abnormality noted. ABDOMEN: Liver: Lack of intravenous contrast limits detection of some masses. No abnormality noted. Gallbladder and bile ducts: No calcified stones or surrounding fluid. Pancreas: No pancreatic mass, calcification, inflammation or ductal dilation noted. Spleen: No significant abnormality noted. Adrenals: No significant abnormality noted. Kidneys and ureters: There is improved left perinephric edema and fluid. Stable to trace left hydronephrosis. There is stable moderate edema and low-density fluid tracking along the left ureter into the pelvis toward the left inguinal region. No associated hyperdensity identified to suggest urinoma/leak. There is hyperdensity throughout much of the left ureter which likely reflects a standing column of contrast from yesterday's injection. The stone at the left UVJ remains. moderate left parapelvic and periureteral edema. Stable low-density fluid in the left retroperitoneum. Right kidney appears normal. Stomach and bowel: Colonic diverticulosis without diverticulitis. No intestinal thickening or obstruction. PELVIS: Appendix: Well seen and appears normal. Bladder: Incompletely distended and not optimally assessed. No gas or stone. Reproductive: No abnormalities noted. ABDOMEN and PELVIS: Intraperitoneal space: No free air. No significant fluid collection. Bones/joints: No acute changes. Soft tissues: There are small bilateral fat containing inguinal hernias. Vasculature: No abdominal aortic aneurysm. Lymph nodes: No pathologically enlarged lymph nodes. IMPRESSION: 1. Stable left UVJ stone and trace hydronephrosis. 2. Moderate amounts of edema and fluid along the left ureter tracking through the left retroperitoneum does not enhance consistent with either urine from a rupture that is since sealed. No extravasated contrast to suggest urinoma. ACT 112: Negative or not required by law. Electronically signed by Jacqueline Ortiz 10-12-2024 6:45 PM Discharge Plan Visit Data Chief Complaint: Flank Pain Stated Complaint: FLANK PAIN, POSS KIDNEY STONE ED Provider: Jimena Peters Discharge Problem: Left ureteral stone, Paraureteric urinoma Patient Disposition: Admitted As Inpatient Discharge Instructions Interventions: ED Discharge Assessment Last Done: 10/12/24 23:50
[2024-10-13] MEDS: SERTRALINE HCL 50 MG TABLET PO SCH (20:37)
[2024-10-13 23:09] VITALS: RESP 16
[2024-10-13] MEDS: cefTRIAXone SODIUM 2,000 MG/50 ML BAG IV SCH (23:12)
--- NOTE | 2024-10-14 02:02 | Billing Data ---
Date of Service October 14, 2024 Coding Level of Care Code 22954 INT INP/OBS CARE
[2024-10-14 07:07] VITALS: BP 127/83; PULSE 73; TEMP 98.1; O2SAT 96
[2024-10-14 08:28] LABS: Basophils # (auto) 0.01 K/uL (0.00-0.20); Basophils % (auto) 0.1 %; Eosinophils # (auto) 0.03 K/uL (0.00-0.50); Eosinophils % (auto) 0.3 %; Hematocrit (blood only) 39.4 % (42.0-52.0); Hemoglobin 13.4 g/dl (14.0-18.0); Immature Granulocytes # (auto) 0.03 K/uL (0.01-0.20); Immature Granulocytes % (auto) 0.3 %; Lymphocytes # (auto) 3.03 K/uL (1.20-3.40); Lymphocytes % (auto) 30.1 %; Mean Corpuscular Hemoglobin 29.5 pg (25.0-34.0); Mean Corpuscular Volume 86.6 fL (80.0-100.0); Mean Platelet Volume 9.3 fL (9.4-12.4); Monocytes # (auto) 0.78 K/uL (0.11-0.59); Monocytes % (auto) 7.7 %; Neutrophils % (auto) 61.5 %; Platelet Count 227 K/uL (130-400); RDW Coefficient of Variation 12.7 % (11.5-14.5); RDW Standard Deviation 39.9 fL (36.4-46.3); Red Blood Count 4.55 M/uL (4.70-6.10); White Blood Count 10.08 K/ul (4.8-10.8)
[2024-10-14 08:50] LABS: Albumin Globulin Ratio 1.5 (0.9-2); Albumin Level 4.1 gm/dl (3.4-5.0); BUN Creatinine Ratio 18.9 (10-20); Bilirubin,Total 0.6 mg/dl (0.2-1.0); Calcium 8.9 mg/dl (8.6-10.3); Creatinine Clr Calc Pharmacy 110.4 ml/min; Globulin 2.8 gm/dl (2.5-4.0); Magnesium 2.2 mg/dl (1.7-2.4); Phosphorus 3.2 mg/dl (2.5-4.9); Potassium 4.1 mmol/L (3.5-5.1); Total Protein 6.9 gm/dl (6.0-8.3)
--- NOTE | 2024-10-14 10:17 | Discharge Summary ---
Discharge Summary Date of Service October 14, 2024 Principal Dx & Hospital Course #1 = Principal Diagnosis (1) MARLEY (acute kidney injury): (2) Paraureteric urinoma: (3) Renal colic on left side: Plan Everett Hurtado is a 54 year-old male with medical history significant for GERD, HTN, HLD who presented to the ED for left sided back pain. Was seen the day prior in ED for known left sided renal stone, was discharged at the time with plan for outpatient urology follow up. #Left UVJ Stone | Possible Paraureteric Urinoma - Worsening of pain since ED evaluation day prior and discharged on Cefdinir (on ly took 2 doses) - No leukocytosis, afebrile. UA +ketones. - Repeat CT A/P obtained: "stable left UVJ stone and trace hydronephrosis. Moderate amounts of edema and fluid along the left ureter tracking through he left retroperitoneum does not enhance consistent with either urine from a rupture that is since sealed. No extravasated contrast to suggest urinoma." This differs from the CT A/P the day prior which did report a urinoma - CT from 10/11 reported "moderate fat stranding with adjacent fluid collection is noted along the entire course of left ureter-suggest changes of obstructive uropathy with urinoma formation. - received CTX while in the hospital, pt has 4 days of Cefdinir left, which he will complete when he gets home - Urology recs appreciated, s/p stent placement on 10/13/23, outpatient follow up for stent removal #MARLEY resolved HTN- continue lisinopril (monitor Cr) Anxiety/depression- continue sertraline Admission HPI Per Admitting Provider Everett Hurtado is a 54 year-old male with medical history significant for GERD, HTN, HLD who presented to the ED for left sided back pain. Patient was previously evaluated in the ED at [facility] on 10/11 for same symptoms, was diagnosed with renal colic on left side and CT imaging showed paraureteric urinoma- patient was discharged on Cefdinir and recommended to follow up with urology as an outpatient. Patient returned to ED today after no improvement in symptoms after starting the antibiotic. Patient endorses left sided back/flank pain and has been unable to get comfortable, endorses feeling sweaty due to the pain. States he had a kidney stone 20+ years ago but he passed it on his own and had no other issues. Currently patient denies chest pain/SOB/fever/body aches. Denies any hematuria or dysuria. States he has not had much to eat or drink today due to the pain he is in. Notes some improvement with IV Toradol given in ED. ED Course: -KUB -CT A/P -CBC, CMP, UA Discharge Exam Gen: NAD, lying in bed comfortable HEENT: NC/AT, MMM Lungs: CTAB CVS: s1s2nl, RRR Abd: nl bs, nontender, soft : mild left flank soreness, no mei Ext: no edema Discharge Plan Discharge Items Patient Disposition: Home - Self-Care Reason For Visit: RENAL STONE Discharge Diagnosis: nephrolithiasis Activity: Resume your previous activity Non-emergency contact: Urologist Call non-emergency contact if: your pain is not controlled, your pain is worsening and your temperature is above 101 Follow-up/Referrals: Neyda Ayala CRNP [Primary Care Provider] - Diet: Heart Healthy Addtl Attending Provider Instructions: Follow up with Dr. Faustino Islas (Urologist) for stent removal. Complete remaining 4 days of Cefdinir. Pending Studies at Discharge: No Stand-Alone Forms: My Occipital, Smoking Cessation Medications and DC Order Prescriptions: Continued sertraline 25 mg tablet 25 mg PO HS Qty: 90 3RF latanoprost 0.005 % drops 1 drp ophthalmic (eye) .COMPLEX Rx Instructions: 1 drp into the eye(s) ONE DROP EACH EYE AT BEDTIME; lisinopril 20 mg tablet 20 mg PO DAILY cefdinir 300 mg capsule 300 mg PO BID 5 Days Qty: 10 0RF Discharge Orders: Discharge Order (Routine); Ordered 10/14/24 Ordered By: Jessica Workman Admission Data Admit Date/Time: 10/12/24 22:02 Attending Provider: Jessica Workman Admit Provider: Christina Webb Primary Care Provider: Neyda Ayala Other Providers: Sj Muhammad; Faustino Islas Hospital Stay Data Consultations 10/12/24 20:32 ED Decision to Admit Stat 10/12/24 23:50 Consult Urology Routine Procedures Performed Operation Date: 10/13/24 09:00 Actual Procedures p Cystoscopy,Ureteronephroscopy, Left Stent Placement - Faustino Islas MD Diagnostic Imagining Performed 10/12/24 18:18 CT Abd and Pelvis [CT abd pelvis wo con] Stat 10/13/24 [place] KUB Routine Pending Results Patient Have Any Pending Studies at Discharge: No Discharge Instructions Given to Patient (Per Discharging Provider) Follow up with Dr. Faustino Islas (Urologist) for stent removal. Complete remaining 4 days of Cefdinir. Total Time Total Time Spent Total Time Spent (In Minutes): 50 Coding Level of Care Code 70216 INP/OBS DISCH >30 MIN Diagnoses MARLEY (acute kidney injury) N17.9 Paraureteric urinoma N28.89 Renal colic on left side N23
== END 2024-10-14 11:03 | disposition home or self-care (01) | DRG 661 ==
LOC: ED 17:20 → SUATTDRO 22:02 → EDINP 22:02 → 3N 23:50